=== PATIENT | female | born 1990 | race Caucasian/White ===

== ENCOUNTER 2018-09-02 10:37 | Emergency (ER) | payer SELFPAY, OTHER ==
[2018-09-02] MEDS: ONDANSETRON (ODT) 4 MG TAB ODT (11:21)
[2018-09-02] MEDS: HYDROCODONE/APAP (5/325) TAB PO (11:22)
== END 2018-09-02 13:09 | disposition home or self-care (01) ==
LOC: FTE 10:37
DX: S82.102A Unspecified fracture of upper end of left tibia, initial encounter for closed fracture (principal); V00.831A Fall from motorized mobility scooter, initial encounter; Y92.9 Unspecified place or not applicable
CPT/HCPCS: 29505; 73562; 99283-25